=== PATIENT | female | born 1990 | race Caucasian/White ===

== ENCOUNTER 2016-11-14 10:22 | Emergency (ER) | payer OTHER ==
[~2016-11-14] VITALS: Ht 152.4 cm; Wt 81.6 kg
[~2016-11-14 10:22] MED LIST: ACETAMINOPHEN-1 EAC3 PO; ACETAMINOPHEN500 M4 PO; BACTRIM DS TAB1 EACH PO; CLARITIN10 MG PO; COLACE100 M1 PO; DOXYCYCLINE100 MG PO; EXCEDRIN MIGRAI1 TAB PO; FERRALET 90 TA1 EACH PO; FIORICET 325 MG1 TAB PO; FLUOXETINE HYDR40 MG PO; IBUPROFEN800 M1 PO; LABETALOL HCL100 M1 PO; LO LOESTRIN FE1 TAB PO; LORATADINE10 M1 PO; MOMETASONE0.05 MG/Ac NASB; NASONEX17 GM NASB; PERCOCET 325 MG1 TA2 PO; PERCOCET 5-3251 EACH PO; SINGULAIR10 MG PO; SUMATRIPTAN SU100 MG PO; TOPIRAMATE25 MG PO; TORADOL10 MG PO; TYLENOL EXTRA500 M2 PO; VALACYCLOVIR1000 MG PO; VITAFOL-ONE CA1 EACH PO; ZOFRAN4 M1 SL
[2016-11-14 10:25] VITALS: BP 121/78
[2016-11-14] MEDS ORDERED: FLUOXETINE HCL20 M2 PO (10:44)
[2016-11-14] MEDS ORDERED: TYLENOL325 M1 PO (10:45)
[2016-11-14] MEDS ORDERED: CYCLOBENZAPRINE10 M1 PO (11:26)
[2016-11-14] MEDS ORDERED: IBUPROFEN800 M1 PO (11:26)
--- NOTE | 2016-11-14 11:26 | ED NECK/BACK PAIN COMPLAINT ---
History of Present Illness General Chief Complaint: Headache Stated Complaint: NAZARIO WITH NECK PAIN XS 2 WEEKS Source: patient Exam Limitations: no limitations Vital Signs & Intake/Output Vital Signs & Intake/Output Vital Signs Date Time Temp Pulse Resp B/P Pulse O2 O2 Flow FiO2 Ox Delivery Rate 11/14 1025 97.6 71 20 121/78 98 Room Air Allergies Coded Allergies: varenicline (From [employer]) (Intermediate, "IT MAKES ME CRAZY" 02/08/16) Reconcile Medications Acetaminophen (Tylenol) 325 MG TABLET 2 TAB PO PRN PAIN (Reported) Cyclobenzaprine HCl 10 MG TABLET 1 TAB PO TID SPASMS Fluoxetine HCl 20 MG CAPSULE 1 CAP PO DAILY MENTAL HEALTH (Reported) Ibuprofen 800 MG TABLET 1 TAB PO TID PAIN Loratadine 10 MG TABLET 1 TAB PO DAILY ALLERGIES (Reported) Triage Note: PT TO ED C/O NECK PAIN X 2 WEEKS. HAS BEEN USING HEATING PAD AND TYLENOL WITH RELEIF. DENIES ANY OBVIOUS INJURY. PT STATES IT IS WORSE WITH WAKING. PT ALSO STATES "I AM SO STRESSED AT NIGHT WHEN I AM SLEEPING THAT MY SHOULDERS ARE UP TO MY EARS." Triage Nurses Notes Reviewed? yes Onset: Abrupt Duration: week(s): (2), constant, continues in ED Timing: recent history Radiation: none Loss of Consciousness: no loss of consciousness : No Patient currently breastfeeds: No HPI: 18-year-old female comes into emergency room for further evaluation of upper back pain bilaterally has been going on for the past couple weeks. Pain is worse with certain range of motion. Denies any rashes. Denies any falls trauma. Denies any fever or chills. Denies any headache. Denies any prior history. Patient has been taking Tylenol with minimal relief. Patient cannot get in with her primary care doctor so she was told to come to the hospital. (CARMEN CORTEZ) Past History Travel History Traveled to [place] past 21 day No Medical History Any Pertinent Medical History? 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 No (CARMEN CORTEZ) Review of Systems Review of Systems Constitutional: Reports: no symptoms. Eyes: Reports: no symptoms. Ears, Nose, Throat, Mouth: Reports: no symptoms. Respiratory: Reports: no symptoms. Cardiovascular: Reports: no symptoms. Gastrointestinal/Abdominal: Reports: no symptoms. Musculoskeletal: Reports: see HPI. Skin: Reports: no symptoms. Neurological/Psychological: Reports: no symptoms. All Other Systems: Reviewed and Negative (CARMEN CORTEZ) Physical Exam Physical Exam General Appearance: well developed/nourished, mild distress Head: atraumatic Eyes: Bilateral: normal appearance. Ears, Nose, Throat, Mouth: hearing grossly normal, moist mucous membrane Neck: normal inspection, full range of motion Respiratory: normal breath sounds, no respiratory distress Cardiovascular: regular rate/rhythm Back: normal inspection, paraspinal/trapezius muscle tenderness bilaterally, no rash, Extremities: normal range of motion Neurologic/Psych: awake, alert, oriented x 3, normal mood/affect Skin: intact, normal color, warm/dry (CARMEN CORTEZ) Progress Differential Diagnosis: cauda equina syn, herniated disc, myofascial strain, sciatica, spinal cord inj, thoracic outlet syn, T/L spine injury, ureterolithiasis Plan of Care: 11/14/2016 11:41:04 AM Pain is consistent with muscular pain. Pain is reproducible on exam. Patient clinically looks well. Nontoxic-appearing. No nuchal rigidity.For meningitis. Return if any other concerns worsening symptoms. (CARMEN CORTEZ) Departure Departure Disposition: HOME OR SELF CARE Condition: Stable Clinical Impression Primary Impression: Trapezius muscle spasm Referrals: RAEANN ANDERSON,MAL Welch (PCP/Family) Additional Instructions: Take ibuprofen and Flexeril as prescribed. Follow-up with primary care doctor. Return if any other concerns worsening symptoms. Please go over all results of today's visit with your primary care doctor. Contact your primary care doctor to let them know you were here in the emergency room. There may be nonspecific findings which may not be related to your visit today here in the emergency room but may require further evaluation and chronic monitoring by your primary care doctor. If you had a laceration today the chance of foreign body always remains. You should follow-up with your primary care doctor for recheck in 3-5 days for a wound check. If you had an x-ray done there is a chance that a fracture could have been missed on initial read and you should follow-up with your primary care doctor for repeat x-rays if symptoms persist. If your blood pressure was elevated here in the emergency room please have rechecked by her primary care doctor within the next 48 hours by your primary care doctor. If you were prescribed a narcotic here in the emergency room or any type of controlled substances you're not allowed to drive while taking this medication or operate any type of heavy machinery. Narcotics can make you feel lightheaded dizziness nausea and can cause constipation. You may need to shredder picker a stool softener. Thank you for choosing [facility] emergency room. Please return to the emergency room immediately if you have any other concerns worsening of symptoms. Departure Forms: Customer Survey General Discharge Information Prescriptions: Current Visit Scripts Cyclobenzaprine HCl 1 TAB PO TID #20 TAB Ibuprofen 1 TAB PO TID #30 TAB (CARMEN CORTEZ) PA/AN/SSN 2 4 OPERATOR Co-Sign Statement Statement: ED Attending supervision documentation- [] I saw and evaluated the patient. I have also reviewed all the pertinent lab results and diagnostic results. I agree with the findings and the plan of care as documented in the PA's/AN/SSN 2 4 OPERATOR's documentation. x I have reviewed the ED Record and agree with the PA's/AN/SSN 2 4 OPERATOR's documentation. [] Additions or exceptions (if any) to the PAs/AN/SSN 2 4 OPERATOR's note and plan are summarized below: [] (DEVEN ANDERSON,ANDRE)
== END 2016-11-14 11:38 ==
LOC: ERH 10:22
DX: M62.838 Other muscle spasm (principal)

== ENCOUNTER 2017-01-11 20:27 | Emergency (ER) | payer OTHER ==
[~2017-01-11] VITALS: Ht 152.4 cm; Wt 81.6 kg
[~2017-01-11 20:27] MED LIST changes: +CYCLOBENZAPRINE10 M1 PO; +FLUOXETINE HCL20 M2 PO; +TYLENOL325 M1 PO
[2017-01-11 20:55] VITALS: BP 120/75
[2017-01-11] MEDS ORDERED: FERRALET 90 TA1 EACH (21:25)
[2017-01-11] MEDS ORDERED: ARIPIPRAZOLE5 M1 (21:25)
[2017-01-11] MEDS ORDERED: CEPHALEXIN500 M3 PO (22:18)
[2017-01-11] MEDS ORDERED: BACTRIM DS TAB1 EACH PO (22:18)
--- NOTE | 2017-01-11 22:19 | ED HAND/WRIST INJURY COMPLAINT ---
History of Present Illness General Chief Complaint: Hand or Wrist Injury Stated Complaint: PT HAS POSSIBLE INFECTION ON RT THUMB Source: patient Exam Limitations: no limitations Vital Signs & Intake/Output Vital Signs & Intake/Output Vital Signs Date Time Temp Pulse Resp B/P B/P Pulse O2 O2 Flow FiO2 Mean Ox Delivery Rate 01/11 2055 98.9 74 18 120/75 98 Room Air ED Intake and Output 01/12 0000 01/11 1200 Intake Total Output Total Balance Patient 180 lb Weight Allergies Coded Allergies: varenicline (From [employer]) (Intermediate, "IT MAKES ME CRAZY" 02/08/16) Reconcile Medications Aripiprazole (Unknown Strength) TABLET (Unknown Dose) UNKNOWN (Reported) Cephalexin 500 MG CAPSULE 1 CAP PO TID cellulitis Iron Carb,Gl/FA/B12/C/Docusate (Ferralet 90 Tablet) (Unknown Strength) TABLET (Unknown Dose) UNKNOWN (Reported) Loratadine 10 MG TABLET 1 TAB PO DAILY ALLERGIES (Reported) Sulfamethoxazole/Trimethoprim (Bactrim Ds Tablet) 800 MG-160 MG TABLET 1 TAB PO BID abscess Triage Note: PT COMPLAINS OF R THUMB INFECTION SINCE YESTERDAY TOOK TYLENOL FOR PAIN WITH MINIMAL RELIEF. PT NOTED WITH PARONYCHIA. Triage Nurses Notes Reviewed? yes Occurred: yesterday Duration: day(s): (1), constant, continues in ED, getting worse Timing: single episode today Severity: moderate, severe Severity Numbers: 8 Pain/Injury Location: Right: 1st finger (paronychia). Context: paronychia No Modifying Factors: none Associated Symptoms: swelling, redness, pain LMP (ages 10-50): unknown : No Patient currently breastfeeds: No HPI: 26-year-old female history of anxiety presents complaining of pain swelling and redness in her right first digit for the past 2 days. Patient denies any trauma to the area. She reports she noted a small amount of pus coming from the top of her nail yesterday while squeezing the area. No fevers numbness tingling. (MAHENDRA OBANDO) Past History Travel History Traveled to [place] past 21 day No Medical History Any Pertinent Medical History? 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 No (MAHENDRA OBANDO) Review of Systems Review of Systems Constitutional: Reports: no symptoms. EENTM: Reports: no symptoms. Respiratory: Reports: no symptoms. Cardiovascular: Reports: no symptoms. GI: Reports: no symptoms. Genitourinary: Reports: no symptoms. Musculoskeletal: Reports: see HPI (rt 5th digit pain). Skin: Reports: no symptoms. Neurological/Psychological: Reports: no symptoms. Hematologic/Endocrine: Reports: no symptoms. Immunologic/Allergic: Reports: no symptoms. All Other Systems: Reviewed and Negative (MAHENDRA OBANDO) Physical Exam Physical Exam General Appearance: well developed/nourished, no apparent distress, alert, awake , anxious Head: atraumatic, normal appearance Eyes: Bilateral: normal appearance, PERRL. Ears, Nose, Throat: normal pharynx, normal ENT inspection, hearing grossly normal Neck: normal inspection, supple, full range of motion Cardiovascular/Respiratory: normal breath sounds, regular rate/rhythm, no respiratory distress Back: normal inspection, normal range of motion Elbow Right: normal range of motion, normal inspection Forearm Right: normal range of motion, normal inspection Wrist Right: normal range of motion, normal inspection Hand Left: normal inspection, normal range of motion Hand Right: infection, swelling, tender, 1st finger (paronychia) Neurologic/Tendon: normal sensation, normal motor functions, normal tendon functions, responds to pain, no evidence tendon injury, no pulse deficit Skin: intact, normal color Comments: There is swelling and erythema of the proximal nailbed of the right fifth digit. There is a focal fluctuant area at the base of the nail. There is visible pus beneath the nail. Range of motion of the first digit neurovascular supply is intact. (MAHENDRA OBANDO) Progress Differential Diagnosis: abscess, cellulitis, contusion, compartment syndrome, dislocation, fracture, gout, paronychia, septic arthritis, tenosynovitis Plan of Care: Orders Procedure Date/time Status EXTREMETIES CULTURE 01/12 2212 Active Microbiology 01/11 2200 EXTREMITIE: Culture & Sensitivity - RECD 01/11 2200 EXTREMITIE: Gram Stain - RECD Consent obtained. The area was cleaned with Betadine and hydrogen peroxide. A digital block was applied to the right first digit with 2 mL of 1% lidocaine without epinephrine. The area of fluctuance at the base of the nail was opened with a 25-gauge needle. Pus was expressed from the tip of the nailbed and the opening at the base of the nail. A culture was obtained and a sterile dressing was applied. Patient will be placed on Bactrim twice a day and Keflex 500 mg 3 times a day both for one week. Patient will be discharged home and follow up with her primary care doctor for wound care. Will follow up on results of culture. (MAHENDRA OBANDO) Departure Departure Disposition: HOME OR SELF CARE Condition: Stable Clinical Impression Primary Impression: Paronychia of finger of right hand Referrals: RAEANN ANDERSON,MAL Welch (PCP/Family) Additional Instructions: Keep area clean and dry change dressing once daily. Apply warm compresses to the area once a day for 15-20 minutes. Take both antibiotics as directed for the full course. Use Tylenol 1000 mg every 6 hours as needed for pain. You should follow up with her primary care doctor next week for a wound check. Return to the emergency department sooner with any concerns. Departure Forms: Customer Survey General Discharge Information Prescriptions: Current Visit Scripts Sulfamethoxazole/Trimethoprim (Bactrim Ds Tablet) 1 TAB PO BID #14 TAB Cephalexin 1 CAP PO TID #21 CAP (MAHENDRA OBANDO) PA/CHINESE INSTRUCTOR Co-Sign Statement Statement: ED Attending supervision documentation- [] I saw and evaluated the patient. I have also reviewed all the pertinent lab results and diagnostic results. I agree with the findings and the plan of care as documented in the PA's/CHINESE INSTRUCTOR's documentation. [X] I have reviewed the ED Record and agree with the PA's/CHINESE INSTRUCTOR's documentation. [] Additions or exceptions (if any) to the PAs/CHINESE INSTRUCTOR's note and plan are summarized below: [] (TARA ANDERSON,ENIO Buenrostro) Procedures Incision and Drainage Site: right 5th digit nailbed Blade Size: 25 gaugue needle I & D Procedure: Yes: betadine prep, sterile drapes applied, sterile dressing applied. No: wick placed. Progress: Consent obtained. The area was cleaned with Betadine and hydrogen peroxide. A digital block was applied to the right first digit with 2 mL of 1% lidocaine without epinephrine. The area of fluctuance at the base of the nail was opened with a 25-gauge needle. Pus was expressed from the tip of the nailbed and the opening at the base of the nail. A culture was obtained and a sterile dressing was applied. (MAHENDRA OBANDO)
== END 2017-01-11 22:24 ==
LOC: ERH 20:27
DX: L03.011 Cellulitis of right finger (principal)
CPT/HCPCS: 87184; 87070; 87147